=== PATIENT | male | born 1955 | race Asian ===

== ENCOUNTER 2019-03-07 10:38 | Emergency (ER) | payer OTHER ==
[~2019-03-07] VITALS: Ht 170.2 cm; Wt 68.2 kg
[2019-03-07] MEDS ORDERED: ATOR10TA84 PO (10:51)
[2019-03-07] MEDS ORDERED: ASPI-1182 PO (10:54)
[2019-03-07] MEDS ORDERED: ALLO300 PO (10:54)
[2019-03-07] MEDS ORDERED: LIDOCAINE 2% VISCOUS 15 ML SOLUTION UDCUP PO ONE (12:15)
[2019-03-07] MEDS ORDERED: PERTUSS(ACELL),DIPH,TET VAC/PF 0.5 ML VIAL IM ONE (12:15)
[2019-03-07] MEDS ORDERED: LIDOCAINE 5% TRANSDERMAL PATCH TD ONE (13:15)
[2019-03-07] MEDS ORDERED: ACETAMINOPHEN 325 MG TABLET PO ONE (13:15)
[2019-03-07] MEDS ORDERED: IBUPROFEN 400 MG TABLET PO ONE (13:15)
[2019-03-07 15:05] VITALS: BP 131/85
== END 2019-03-07 15:15 | disposition home or self-care (01) ==
LOC: EMS 10:43
DX: S01.01XA Laceration without foreign body of scalp, initial encounter (principal); S60.512A Abrasion of left hand, initial encounter; S60.511A Abrasion of right hand, initial encounter; Z79.899 Other long term (current) drug therapy; W22.8XXA Striking against or struck by other objects, initial encounter; Y93.89 Activity, other specified; Y92.89 Other specified places as the place of occurrence of the external cause; Y99.8 Other external cause status
CPT/HCPCS: 12002; 70450; 90471; 90715

== ENCOUNTER 2020-07-28 09:37 | Emergency (ER) | payer OTHER ==
[~2020-07-28] VITALS: Ht 170.2 cm; Wt 68.2 kg
[~2020-07-28 09:37] MED LIST: ALLO-45 PO; ASPI-1444 PO; ATOR10TA84 PO
[2020-07-28] MEDS ORDERED: NAPR-1025 PO (09:50)
[2020-07-28] MEDS ORDERED: LISI-892 PO (09:50)
[2020-07-28] MEDS ORDERED: SIMV-260 PO (09:50)
[2020-07-28] MEDS ORDERED: TRAZ-257 PO (09:50)
[2020-07-28 11:20] VITALS: BP 131/75
== END 2020-07-28 12:04 | disposition home or self-care (01) ==
LOC: EMS 09:41
DX: M25.561 Pain in right knee (principal); I10 Essential (primary) hypertension; E78.00 Pure hypercholesterolemia, unspecified; Z79.82 Long term (current) use of aspirin; Z79.899 Other long term (current) drug therapy
CPT/HCPCS: 99283